=== PATIENT | male | born 1945 | race Caucasian/White ===

== ENCOUNTER → 2016-08-03 | Outpatient (CLI) | payer MEDICARE ==
[~2016-08-03] MED LIST: ASPIRIN81 M1 PO; BIAXIN500 MG PO; CALCIUM1 CAP PO; CLOPIDOGREL75 MG PO; CRESTOR20 MG PO; CRESTOR5 MG PO; DAYPRO600 M1 PO; METAMUCIL CLEAR1 POW PO; MULTI VITAMINS1 TAB PO; PLAVIX75 MG PO; ROBAXIN750 MG PO; TESSALON PERLE200 MG PO; VERELAN SR 240240 MG PO; VICODIN 500 MG-1 TAB PO; VITAMIN C1 TAB PO; ZESTRIL,PRINIVI20 MG PO
== END | disposition home or self-care (01) ==
LOC: LAB 14:53
DX: C61 Malignant neoplasm of prostate (principal); R39.198 Other difficulties with micturition

== ENCOUNTER → 2017-08-16 | Outpatient (CLI) | payer MEDICARE | END | disposition home or self-care (01) | LOC: LAB 10:32 | DX: C61 Malignant neoplasm of prostate (principal) ==

== ENCOUNTER → 2018-05-02 | Outpatient (CLI) | payer MEDICARE ==
[~2018-05-02] MED LIST changes: +FIBER LAXATIVE500 M1 PO; +IRON325 M3 PO; +LIPITOR40 MG PO; -ZESTRIL,PRINIVI20 MG PO; +ZESTRIL20 MG PO
== END | disposition home or self-care (01) ==
LOC: RAD 09:41
DX: G54.1 Lumbosacral plexus disorders (principal)

== ENCOUNTER → 2018-05-30 | Day surgery (SDC) | payer MEDICARE ==
--- NOTE | ~2018-05-30 | O ---
[place], [place] OPERATIVE NOTE NAME: NEEMA LAI UNIT #: [id number] ROOM: DOCTOR: IVÁN BUSTAMANTE MD BIRTHDATE: [birth year] DOS: 05/30/2018 HISTORY: A 73-year-old patient who presented with a Cologuard positive test, undergoing investigation. ALLERGIES: No known medication. FAMILY HISTORY: Father with colonic CA. PAST SURGICAL HISTORY: Tonsillectomy, colon resection, history of appendectomy, inguinal hernia. PAST MEDICAL HISTORY: Cardiac stents. SOCIAL HISTORY: Nonsmoker. Alcohol consumer. PROCEDURE: Today's procedure part of investigation is colonoscopy plus piecemeal polypectomy at cecum. PREMEDICATION: Propofol. SCOPE: Olympus forward-viewing colonoscope 10L video. REPORT: After putting the patient in left lateral position and application of lubricant to the scope, the scope was introduced. Thereafter, under direct visualization, advanced all the way to the cecum. A sessile polypoid lesion with a small above cecum with piecemeal polypectomy removed. Base of cecum explored. Ileocecal valve and appendiceal orifice identified. Air was suctioned out. Evidence of diverticulosis, more so on the ascending and transverse colon was identified. No other pathology seen. Some liquid stool throughout the length of colon was noticed. The patient extubated, tolerated the procedure well. IMPRESSION: Diverticulosis, moderate degree at transverse colon, ascending colon. Sessile polypoid lesion and small bowel cecum. PLAN AND DISCUSSION: This patient has history of colonic CA. Apparently of resection in the past and I did not see any other source of contribution. Unless the pathology is beyond the mucosal level. [place], [place] OPERATIVE NOTE NAME: NEEMA LAI UNIT #: [id number] ROOM: DOCTOR: IVÁN BUSTAMANTE MD BIRTHDATE: [birth year] IVÁN BUSTAMANTE MD CM:OPRECORD:OPERATIVE NOTE [id number] IVÁN BUSTAMANTE MD 06/05/18 0808 interface
[2018-05-30 11:25] VITALS: BP 162/86
[2018-05-30 13:22] VITALS: BP 132/82
[2018-05-30 13:37] VITALS: BP 161/81
[2018-05-30 13:52] VITALS: BP 158/78
== END | disposition home or self-care (01) ==
LOC: SDC 05-27 14:45
DX: D12.8 Benign neoplasm of rectum (principal); K57.30 Diverticulosis of large intestine without perforation or abscess without bleeding; I12.9 Hypertensive chronic kidney disease with stage 1 through stage 4 chronic kidney disease, or unspecified chronic kidney disease; N18.3 Chronic kidney disease, stage 3 (moderate); I25.10 Atherosclerotic heart disease of native coronary artery without angina pectoris; Z80.0 Family history of malignant neoplasm of digestive organs; Z85.038 Personal history of other malignant neoplasm of large intestine; Z98.890 Other specified postprocedural states; Z98.0 Intestinal bypass and anastomosis status; Z95.5 Presence of coronary angioplasty implant and graft; Z79.899 Other long term (current) drug therapy

== ENCOUNTER → 2018-08-26 | Outpatient (CLI) | payer MEDICARE | END | disposition home or self-care (01) | LOC: RAD 10:23 | DX: M79.605 Pain in left leg (principal) ==

== ENCOUNTER → 2018-09-05 | Outpatient (CLI) | payer MEDICARE | END | disposition home or self-care (01) | LOC: US 12:22 | DX: M79.605 Pain in left leg (principal); R09.89 Other specified symptoms and signs involving the circulatory and respiratory systems ==

== ENCOUNTER → 2020-12-27 | Outpatient (CLI) | payer MEDICARE ==
[2020-12-27 12:19] LABS: ALBUMIN 3.5 gm/dl (3.1-4.5)
== END | disposition home or self-care (01) ==
LOC: LAB 11:35
PROVIDERS: Nurse Practitioner Family; ATTEND Internal Medicine Cardiovascular Disease
DX: E78.5 Hyperlipidemia, unspecified (principal)

== ENCOUNTER → 2021-01-19 | Outpatient (CLI) | payer MEDICARE | END | disposition home or self-care (01) | LOC: RAD 16:32 | PROVIDERS: ATTEND Internal Medicine Nephrology | DX: M54.5 Low back pain (principal) ==

== ENCOUNTER 2021-04-10 15:44 | Emergency (ER) | payer MEDICARE ==
[~2021-04-10] VITALS: Wt 68.0 kg
[2021-04-10 16:16] VITALS: BP 170/116
[2021-04-10 16:34] LABS: BASO % 0.3 % (0.0-1.0); EOS % 0.2 % (1.0-4.0); HEMATOCRIT 43.6 % (42.0-52.0); LYMPH % 10.2 % (27.0-41.0); MEAN CELL VOLUME 95.4 fl (80.0-94.0); MEAN CORPUSCULAR HGB 31.9 pg (27.0-31.0); MEAN CORPUSCULAR HGB CONC 33.5 g/dl (33.0-37.0); MEAN PLATELET VOLUME 9.6 fl (9.6-12.3); MONO # 0.7 10*3/uL (0.1-1.0); NEUT # 7.5 10*3/uL (2.3-7.9); NEUT % 80.9 % (47.0-73.0); PLATELET COUNT AUTOMATED 209 10*3/uL (130-400); RED BLOOD COUNT 4.57 10*6/uL (4.50-5.90); RED CELL DISTRI WIDTH 13.2 % (0-14.5); WHITE BLOOD COUNT 9.3 10*3/uL (4.8-10.8)
[2021-04-10 16:44] LABS: BILIRUBIN Negative (Negative); BLOOD Trace-Intact (Negative); CLARITY Clear (Clear); COLOR Yellow (Yellow); GLUCOSE Negative (Negative); KETONE Negative (Negative); LEUKO ESTERASE Negative (Negative); NITRITE Negative (Negative); SPECIFIC GRAVITY 1.025 (1.001-1.030); UROBILINOGEN 0.2 E.U./dl (0.0-1.0)
[2021-04-10 16:49] LABS: ALKALINE PHOSPHATASE 90 U/L (45-117); BUN 25 mg/dl (7-24); CHLORIDE 107 mmol/L (98-107); POTASSIUM 4.1 mmol/L (3.5-5.1); SGOT/AST 24 IU/L (3-35); SGPT/ALT 42 U/L (12-78); SODIUM 142 mmol/L (136-145); TOTAL PROTEIN 7.4 gm/dL (6.4-8.2)
[2021-04-10 16:51] LABS: BACTERIA TRACE
[2021-04-10 16:52] LABS: EPITHELIAL CELLS 0-2
[2021-04-10] MEDS ORDERED: PERCOCET 10-321 EACH PO (18:54)
== END 2021-04-10 18:50 | disposition home or self-care (01) ==
LOC: ED 15:44
PROVIDERS: Nurse Practitioner Family
DX: N13.2 Hydronephrosis with renal and ureteral calculous obstruction (principal)

== ENCOUNTER → 2021-05-23 | Outpatient (CLI) | payer MEDICARE ==
[~2021-05-23] MED LIST changes: +PERCOCET 10-321 EACH PO
== END | disposition home or self-care (01) ==
LOC: US 09:20
PROVIDERS: ATTEND Urology
DX: N32.89 Other specified disorders of bladder (principal); N20.1 Calculus of ureter

== ENCOUNTER → 2021-10-12 | Day surgery (SDC) | payer MEDICARE ==
[~2021-10-12] VITALS: Ht 170.1 cm; Wt 69.4 kg
[~2021-10-12] MED LIST changes: +PERCOCET 5-3251 EACH PO
[2021-10-12 07:51] VITALS: BP 134/71
[2021-10-12 08:32] VITALS: BP 108/58
[2021-10-12 08:34] VITALS: BP 119/57
[2021-10-12 08:49] VITALS: BP 126/59
[2021-10-12 10:45] VITALS: BP 108/08
== END | disposition home or self-care (01) ==
LOC: SDC 10-09 09:30
PROVIDERS: ATTEND Surgery
DX: L08.89 Other specified local infections of the skin and subcutaneous tissue (principal); L92.8 Other granulomatous disorders of the skin and subcutaneous tissue; I10 Essential (primary) hypertension; I25.10 Atherosclerotic heart disease of native coronary artery without angina pectoris; Z98.890 Other specified postprocedural states

== ENCOUNTER → 2023-01-11 | Outpatient (CLI) | payer MEDICARE ==
[2023-01-11 12:49] LABS: BUN 15 mg/dl (9-23); CHLORIDE 107 mmol/L (98-107)
== END | disposition home or self-care (01) ==
LOC: LAB 11:48
PROVIDERS: ATTEND Internal Medicine Nephrology
DX: U07.1 COVID-19 (principal)

== ENCOUNTER → 2024-01-13 | Outpatient (CLI) | payer MEDICARE ==
[2024-01-13 11:51] LABS: BUN 21 mg/dl (9-23); CHLORIDE 105 mmol/L (98-107); POTASSIUM 3.9 mmol/L (3.4-5.1)
== END | disposition home or self-care (01) ==
LOC: LAB 10:44
PROVIDERS: Internal Medicine Cardiovascular Disease; ATTEND Urology
DX: C61 Malignant neoplasm of prostate (principal); I10 Essential (primary) hypertension